=== PATIENT | male | born 1960 | race Caucasian/White ===

== ENCOUNTER 2016-08-17 19:51 | Emergency (ER) | payer OTHER ==
[~2016-08-17] VITALS: Ht 175.3 cm; Wt 93.0 kg
[2016-08-17 20:38] LABS: HEMATOCRIT 44.3 % (38.0-50.0); MCH 30.8 PG (29.0-34.0); MCHC 35.4 G/DL (30.0-36.0); MEAN PLAT.VOLUME 11.6 uM^3 (9.0-12.4); PLATELET COUNT 111 K/uL (156-360); RBC DIS.WIDTH-CV 11.7 % (11.8-14.6); RBC DIS.WIDTH-SD 37.8 % (39-53); RED BLOOD COUNT 5.09 M/uL (4.00-5.50); WHITE BLOOD COUNT 4.3 K/uL (4.1-10.2)
[2016-08-17 20:50] LABS: CHLORIDE 102 mEq/L (99-109); POTASSIUM 4.2 mEq/L (3.7-5.4); SODIUM 137 mEq/L (136-147)
[2016-08-17 20:51] LABS: GLUCOSE 95 mg/dL (70-99)
[2016-08-17 20:53] LABS: ANION GAP 8 MEQ/L (2-14)
[2016-08-17 20:55] LABS: GFR ESTIMATE (CALCULATED) > 59 mL/min/
[2016-08-17 20:56] LABS: UREA NITROGEN (BUN) 15 mg/dL (9-23)
[2016-08-17] MEDS ORDERED: TUSSIONEX PENN473 ML PO (21:18)
[2016-08-17] MEDS ORDERED: MOTRIN600 MG PO (21:18)
[2016-08-17] MEDS ORDERED: NEO-SYNEPHRINE-15 M1 BOTH NARES (21:18)
[2016-08-17] MEDS ORDERED: SUDAFED 12-HOU120 MG PO (21:18)
[2016-08-17 21:51] VITALS: BP 131/64
== END 2016-08-17 21:51 | disposition home or self-care (01) ==
LOC: EME 19:51
DX: J11.1 Influenza due to unidentified influenza virus with other respiratory manifestations (principal)
CPT/HCPCS: 71020; 80048; 85027; 94640; 99281; 99283